=== PATIENT | female | born 1960 | race Caucasian/White ===

== ENCOUNTER 2017-11-02 21:14 | Emergency (ER) | payer BC, OTHER | END 2017-11-03 00:10 | disposition home or self-care (01) | LOC: M ED 11-03 00:10 | DX: S90.32XA Contusion of left foot, initial encounter (principal); W20.8XXA Other cause of strike by thrown, projected or falling object, initial encounter; Y92.099 Unspecified place in other non-institutional residence as the place of occurrence of the external cause; Y93.9 Activity, unspecified; Y99.9 Unspecified external cause status; I10 Essential (primary) hypertension; J45.909 Unspecified asthma, uncomplicated; Z87.442 Personal history of urinary calculi; E11.9 Type 2 diabetes mellitus without complications; Z87.891 Personal history of nicotine dependence; Z79.82 Long term (current) use of aspirin; Z79.899 Other long term (current) drug therapy; Z88.5 Allergy status to narcotic agent; Z88.8 Allergy status to other drugs, medicaments and biological substances | CPT/HCPCS: 73630 ==

== ENCOUNTER → 2017-11-11 | Outpatient (CLI) | payer BC, OTHER | LOC: M WUC 17:51 | DX: S60.042A Contusion of left ring finger without damage to nail, initial encounter (principal); X58.XXXA Exposure to other specified factors, initial encounter; Y92.89 Other specified places as the place of occurrence of the external cause | CPT/HCPCS: 73140 ==

== ENCOUNTER → 2018-04-17 | Outpatient (CLI) | payer BC, OTHER ==
[~2018-04-17] MED LIST: CETI5TA PO; DITR5TAB PO; ECOT81TA5 PO; METF10004 PO
--- NOTE | 2018-04-17 16:24 | REP ---
Clinical: Pain extending to the right gluteal region. Technique: Frontal view of the pelvis with neutral and frog lateral views of the right hip. Findings: Generalized age-related degenerative changes are appreciated. The bilateral hip joints appear symmetric on frontal pelvic radiograph. No acute fracture or dislocation. No overt osteoarthritic degenerative findings identified. Impression: Age-related degenerative changes noted. Electronically Signed by Brandt Morley MD 04/17/2018 04:16 P
== END ==
LOC: M WUC 15:27
PROVIDERS: ATTEND Physician Assistant
DX: M16.11 Unilateral primary osteoarthritis, right hip (principal); M25.551 Pain in right hip

== ENCOUNTER → 2018-06-24 | Outpatient (CLI) | payer BC, OTHER ==
--- NOTE | 2018-06-26 15:21 | DEXA ---
AP SPINE L1 - L4 1.241 0.4 1.6 LT FEMUR TOTAL 1.057 0.4 1.3 LT NECK 0.956 -0.6 0.6 RT FEMUR TOTAL 1.102 0.7 1.7 RT NECK 0.999 -0.3 1.0 TOTAL BODY TOTAL OTHER COMMENTS: Normal bone densitometry of the spine and hips. FOLLOW-UP: Recommendation for the next bone density exam: 5 years. COLEEN
== END ==
LOC: M WHC 11:57
PROVIDERS: ATTEND Family Medicine
DX: M25.551 Pain in right hip (principal)

== ENCOUNTER 2018-11-09 09:19 | Day surgery (SDC) | payer BC, OTHER ==
[~2018-11-09] VITALS: Ht 157.5 cm; Wt 77.6 kg
[~2018-11-09 09:19] MED LIST changes: +CHLO50TA PO; +COEN100T PO; +CRES10TA PO; +CYAN500T8 PO; +EVEN500C3 PO; +FLON1SPR; +JANU100T PO; +MELO15TA28 PO; +MONT10TA2 PO; +MSM500CA4 PO; +MULTCAP PO; +NS 1,000 ML IV ONE; +PANT20TA2 PO; +POTA10TA16 PO; +VENTAER INH
[2018-11-09] MEDS ORDERED: LIDOCAINE 2% INJ 100 MG/5 ML SDV (FOR ANES.) As Ordered ONE (12:11)
[2018-11-09] MEDS ORDERED: propofoL 200 MG/20 ML VIAL As Ordered ONE ×2 (12:11→12:29)
--- NOTE | 2018-11-09 12:45 | ROOR ---
Patient Name: Catrachita Madrid Procedure Date: 11/09/2018 12:26 PM Date of : 1960 Age: 58 Room: [facility] Gender: Female Note Status: Finalized Procedure: Upper Endoscopy + Biopsies Indications: Heartburn, Exclusion of Azevedo's esophagus Providers: Vic Ann MD Referring MD: GRISEL RECINOS MD Requesting Provider: Medicines: Monitored Anesthesia Care Complications: No immediate complications. Procedure: Pre-Anesthesia Assessment: - The heart rate, respiratory rate, oxygen saturations, blood pressure, adequacy of pulmonary ventilation, and response to care were monitored throughout the procedure. The Endoscope was introduced through the mouth, and advanced to the second part of duodenum. The upper GI endoscopy was accomplished without difficulty. The patient tolerated the procedure well. Findings: The Z-line was variable and was found 38 cm from the incisors. Multiple biopsies were obtained with cold forceps for evaluation to rule out Azevedo's Esophagus randomly at the gastroesophageal junction. A small hiatal hernia was present. No other significant abnormalities were identified in a careful examination of the stomach. The exam of the duodenum was otherwise normal. Impression: - Z-line variable, 38 cm from the incisors. - Small hiatal hernia. - Multiple biopsies were obtained at the gastroesophageal junction. - The examination was otherwise normal. Recommendation: - Patient has a contact number available for emergencies. The signs and symptoms of potential delayed complications were discussed with the patient. Return to normal activities tomorrow. Written discharge instructions were provided to the patient. - High fiber diet. - Discharge patient to home. - Follow an antireflux regimen. - Continue present medications. - Await pathology results. - Telephone GI clinic for pathology results in 1 week. - Return to referring physician. - Check Portal Online for Path Results.([email or web address]) - The findings and recommendations were discussed with the patient's family. Vic Ann MD Vic Ann MD 11/09/2018 12:45:01 PM Electronically signed by Vic Ann MD Number of Addenda: 0 Note Initiated On: 11/09/2018 12:26 PM Estimated Blood Loss: Estimated blood loss: none.
--- NOTE | 2018-11-09 13:15 | ROOR ---
Patient Name: Catrachita Madrid Procedure Date: 11/09/2018 12:27 PM Date of : 1960 Age: 58 Room: [facility] Gender: Female Note Status: Finalized Procedure: Total Colonoscopy to Cecum Indications: Screening for colorectal malignant neoplasm Providers: Vic Ann MD Referring MD: GRISEL RECINOS MD Requesting Provider: Medicines: Monitored Anesthesia Care Complications: No immediate complications. Procedure: Pre-Anesthesia Assessment: - The heart rate, respiratory rate, oxygen saturations, blood pressure, adequacy of pulmonary ventilation, and response to care were monitored throughout the procedure. The Colonoscope was introduced through the anus and advanced to the cecum, identified by appendiceal orifice and ileocecal valve. The colonoscopy was performed without difficulty. The patient tolerated the procedure well. The quality of the bowel preparation was excellent. Findings: The perianal and digital rectal examinations were normal. Non-bleeding internal hemorrhoids were found during retroflexion. The hemorrhoids were small and Grade I (internal hemorrhoids that do not prolapse). Multiple small and large-mouthed diverticula were found in the recto-sigmoid colon, sigmoid colon and descending colon. The exam was otherwise without abnormality on direct and retroflexion views. Impression: - Non-bleeding internal hemorrhoids. - Diverticulosis in the recto-sigmoid colon, in the sigmoid colon and in the descending colon. - The examination was otherwise normal on direct and retroflexion views. - No specimens collected. - The exam was otherwise normal to the cecum. Recommendation: - Patient has a contact number available for emergencies. The signs and symptoms of potential delayed complications were discussed with the patient. Return to normal activities tomorrow. Written discharge instructions were provided to the patient. - High fiber diet. - Discharge patient to home. - Continue present medications. - Repeat colonoscopy in 10 years for screening purposes. - Return to referring physician. - The findings and recommendations were discussed with the patient's family. Vic Ann MD Vic Ann MD 11/09/2018 1:15:23 PM Electronically signed by Vic Ann MD Number of Addenda: 0 Note Initiated On: 11/09/2018 12:27 PM Estimated Blood Loss: Estimated blood loss: none.
[2018-11-09 13:46] VITALS: BP 143/80
== END 2018-11-09 13:57 | disposition home or self-care (01) ==
LOC: M OPP 09:19
PROVIDERS: ATTEND Internal Medicine Gastroenterology
DX: K64.0 First degree hemorrhoids (principal); K57.30 Diverticulosis of large intestine without perforation or abscess without bleeding; Z12.11 Encounter for screening for malignant neoplasm of colon; K22.8 Other specified diseases of esophagus; K44.9 Diaphragmatic hernia without obstruction or gangrene; R12 Heartburn; Z79.82 Long term (current) use of aspirin; Z79.84 Long term (current) use of oral hypoglycemic drugs; Z79.899 Other long term (current) drug therapy; Z88.5 Allergy status to narcotic agent; Z88.8 Allergy status to other drugs, medicaments and biological substances

== ENCOUNTER 2019-06-30 08:20 | Day surgery (SDC) | payer BC, OTHER ==
[~2019-06-30] VITALS: Ht 157.5 cm; Wt 78.5 kg
[~2019-06-30 08:20] MED LIST changes: +LR 1,000 ML IV ONE; -MONT10TA2 PO; +MONT10TA4 PO; -NS 1,000 ML IV ONE; +ceFAZolin SOD 2 GM in IV 1 EA IV ONE
[2019-06-30] MEDS ORDERED: LIDOCAINE 1% MDV 20ML VIAL As Ordered ONE (08:37)
[2019-06-30] MEDS ORDERED: BUPIVACAINE HCL 0.5% 10 ML VIAL As Ordered ONE (08:38)
[2019-06-30] MEDS ORDERED: dexameTHASONE 4 MG/ML 1ML VIAL (J1100) As Ordered ONE ×3 (08:38→11:53)
[2019-06-30] MEDS ORDERED: LIDOCAINE 2% INJ 100 MG/5 ML SYRINGE As Ordered ONE (10:13)
[2019-06-30] MEDS ORDERED: fentaNYL 100 MCG/2 ML INJECTION (J3010) As Ordered ONE (10:13)
[2019-06-30] MEDS ORDERED: propofoL 200 MG/20 ML VIAL As Ordered ONE ×2 (10:13→12:01)
[2019-06-30] MEDS ORDERED: MIDAZOLAM INJ 2 MG/2 ML VIAL (J2250) As Ordered ONE (10:14)
[2019-06-30] MEDS ORDERED: ONDANSETRON 4MG/2ML VIAL (J2405) As Ordered ONE (10:19)
[2019-06-30] MEDS ORDERED: KETOROLAC 60 MG/2 ML VIAL (J1885) As Ordered ONE (10:19)
[2019-06-30] MEDS ORDERED: METOCLOPRAMIDE INJ 10MG/2ML VIAL (J2765) As Ordered ONE (11:43)
[2019-06-30] MEDS ORDERED: HYDR-3713 PO (12:28)
[2019-06-30 13:43] VITALS: BP 152/86
--- NOTE | 2019-07-01 22:27 | RO ---
DATE OF PROCEDURE: 06/30/2019 PREPROCEDURE DIAGNOSIS: Left foot bunion. POSTPROCEDURE DIAGNOSIS: Left foot bunion. PROCEDURE: Left foot bunionectomy with 1st metatarsal osteotomy. SURGEON: Sim Felix DPM STENOGRAPHER SECRETARY: None. ANESTHESIA: Monitored anesthesia care with preoperative injection of 15 mL of a 1:1 mixture of 1% lidocaine plain and 0.50% Marcaine plain. ESTIMATED BLOOD LOSS: Minimal. MATERIALS: Arthrex 2.5 headless compression screw, #3-0 and #4-0 Vicryl, #4-0 nylon. INJECTABLES: 1 mL of Decadron, 4 mg per mL. COMPLICATIONS: None. CONDITION: Stable. Catrachita Madrid is a 59-year-old female who presents to [facility] with complaints of painful bunion to her left foot. She presents today for surgical correction. The patient's side and site were identified and marked in the preoperative holding area. Consent was reviewed and obtained. All risks, complications, and alternatives to the procedure were explained to the patient in detail and all questions were answered. DESCRIPTION OF PROCEDURE: The patient was brought to the operating room and placed on the operating room table in supine position, monitored anesthesia care was delivered by the anesthesia team. Preoperative injection of 15 mL of a 1:1 mixture of 1% lidocaine plain and 0.50% Marcaine plain were injected into the left foot. The left foot was prepped and draped in the normal sterile fashion. A tourniquet was applied to the left ankle and inflated at 225 mmHg. A dorsal incision was drawn over the 1st metatarsophalangeal joint and carried through with a #15 blade. Dissection was carried down to the 1st metatarsophalangeal joint capsule. T-capsulotomy was performed exposing the metatarsal head. Following this, a lateral release was performed releasing the lateral capsule, adductor tendon, sesamoidal ligaments and McGlamry elevator was used to release the plantar structures. Following this, the medial eminence of the metatarsal head was resected with a sagittal saw, and an osteotomy was performed of the metatarsal head, transposing it laterally. This was fixated with an Arthrex 2.5 headless compression screw. Remaining bone ledge was removed with a sagittal saw and smoothed with a rasp. Site was irrigated with normal. A wedge of capsule was removed from the medial capsule and capsular repair was performed with #3-0 Vicryl, subcutaneous closure with #4-0 Vicryl, and skin closure with #4-0 nylon. 1 mL of Decadron was injected. Sterile dressings were applied, tourniquet was deflated. The patient was brought to the post-anesthesia care unit (PACU) with vital signs stable, neurovascular status intact. She will be partial weightbearing. She will followup in the office in 2 days.
== END 2019-06-30 14:10 | disposition home or self-care (01) ==
LOC: M SDC 08:20
PROVIDERS: ATTEND Podiatrist Foot & Ankle Surgery
DX: M20.12 Hallux valgus (acquired), left foot (principal); E11.9 Type 2 diabetes mellitus without complications; I10 Essential (primary) hypertension; E78.5 Hyperlipidemia, unspecified; K21.9 Gastro-esophageal reflux disease without esophagitis; M79.7 Fibromyalgia; Z87.891 Personal history of nicotine dependence; Z79.899 Other long term (current) drug therapy; Z79.84 Long term (current) use of oral hypoglycemic drugs
CPT/HCPCS: 28296; 88300; C1713; J0690; J1100; J1885; J2250; J2405; J2765; J3010

== ENCOUNTER → 2020-04-04 | Outpatient (CLI) | payer BC, OTHER ==
[~2020-04-04] MED LIST changes: +CYAN500T14 PO; -CYAN500T8 PO; +HYDR-3713 PO; -LR 1,000 ML IV ONE; +METHACHOLINE KIT (J7674) INH ONE; -MONT10TA4 PO; +MONT5TAB2 PO; -PANT20TA2 PO; +PANT20TA6 PO; -ceFAZolin SOD 2 GM in IV 1 EA IV ONE
--- NOTE | 2020-04-04 10:13 | PFTRPT ---
Height: 62.00 Inches Weight: 167.00 Lbs BSA: 1.77 Diagnosis: R06.02 DATE: 04/04/2020 ORDERED BY: Heydi Fuller NP. QUALITY: Study of excellent technical quality. PROCEDURE: Under protocol, methacholine was administered. Even after a maximal dose of 25 mg or 188.875 CDUs, no provocation dose ever achieved. IMPRESSION: Negative methacholine challenge study. MTDD
== END ==
LOC: M CARPUL 09:22
PROVIDERS: ATTEND Nurse Practitioner Adult Health
DX: R06.02 Shortness of breath (principal)
CPT/HCPCS: 94070; J7674

== ENCOUNTER → 2021-01-29 | Outpatient (REF) | payer BC, OTHER ==
[~2021-01-29] MED LIST changes: -METHACHOLINE KIT (J7674) INH ONE; +MONT10TA10 PO; -MONT5TAB2 PO
== END ==
LOC: M WUC 15:42
PROVIDERS: ATTEND Physician Assistant
DX: N39.0 Urinary tract infection, site not specified (principal)

== ENCOUNTER 2021-01-30 11:48 | Emergency (ER) | payer BC, OTHER ==
[~2021-01-30] VITALS: Ht 157.5 cm; Wt 74.4 kg
[2021-01-30] MEDS ORDERED: NS 1,000 ML IV ONE (15:15)
[2021-01-30] MEDS ORDERED: ACETAMINOPHEN 500 MG TAB PO ONE ×2 (15:15→16:45)
[2021-01-30 16:00] LABS: BASO % 0.2 % (0.0-1.0); EOS % 0.1 % (0.0-3.0); HEMATOCRIT 36.8 % (36.0-47.0); LYMPH # 1.2 10^3/uL (1.5-5.0); LYMPH % 12.2 % (24.0-44.0); MEAN CORPUSCULAR HGB CONC 32.6 g/dl (32.0-36.5); MEAN CORPUSCULAR VOLUME 85.8 fl (80.0-96.0); NEUTROPHILS # 7.8 10^3/uL (1.5-8.5); PLATELET COUNT, AUTOMATED 231 10^3/uL (150-450); RED BLOOD COUNT 4.29 10^6/uL (4.00-5.40); WHITE BLOOD COUNT 10.1 10^3/uL (4.0-10.0)
--- NOTE | 2021-01-30 16:06 | REP ---
INDICATION: R flank pain, treated for UTI, h/o kidney stones COMPARISON: 08/03/2009 TECHNIQUE: Axial noncontrast images from the lung bases to the pubic symphysis with coronal and sagittal reformations. This CT examination was performed using the following dose reduction techniques: Automated exposure control, adjustment of mA and/or kv according to the patient's size, and use of iterative reconstruction technique. FINDINGS: Acute right-sided perinephric and periureteral stranding is appreciated with multiple nonobstructing intrarenal calculi measuring up to 3.5 mm and no significant hydroureter or obvious obstructing ureteral calculus. However, evaluation of the ureter is somewhat limited due to adjacent soft tissue structures and multiple phleboliths through the lower abdomen and pelvis. Left kidney also demonstrates multiple nonobstructing intrarenal calculi up to 2.5 mm without hydroureteronephrosis. Liver, spleen, pancreas, gallbladder, and bilateral adrenal glands are essentially normal for noncontrast evaluation. The enteric system is without obstruction or acute inflammatory process. Diverticulosis noted without acute diverticulitis. Normal terminal ileum and appendix identified in the right lower quadrant. Pelvis demonstrates relatively normal uterus and right adnexa along with 4.6 cm chronic left ovarian cyst. Small fat containing inguinal hernias noted. No ascites. No free air. No significant adenopathy. Atherosclerotic changes to the aorta and vasculature noted without aneurysm. Musculoskeletal structures demonstrate degenerative changes without acute osseous abnormality. Lung bases are clear. IMPRESSION: Bilateral nonobstructing nephroliths. Changes related to the right kidney suggest acute pyelonephritis versus recently passed ureteral stone. Correlation is required. 4.6 cm chronic left ovarian cyst. Diverticulosis. <Electronically signed by Brandt Morley > 01/30/21 [id number]
[2021-01-30 16:24] LABS: ALBUMIN 3.3 GM/DL (3.2-5.2); ALT/SGPT 28 U/L (12-78); BILIRUBIN,DIRECT 0.1 MG/DL (0.0-0.2); BILIRUBIN,TOTAL 0.4 MG/DL (0.2-1.0); BLOOD UREA NITROGEN 11 MG/DL (7-18); CALCIUM LEVEL 9.5 MG/DL (8.8-10.2); CARBON DIOXIDE LEVEL 34 MEQ/L (21-32); CHLORIDE LEVEL 99 MEQ/L (98-107); CREATININE FOR GFR 0.72 MG/DL (0.55-1.30); GLOMERULAR FILTRATION RATE > 60.0 (>45); GLUCOSE, FASTING 129 MG/DL (70-100); LIPASE 57 U/L (73-393); POTASSIUM SERUM 3.3 MEQ/L (3.5-5.1); SODIUM LEVEL 138 MEQ/L (136-145); TOTAL PROTEIN 7.2 GM/DL (6.4-8.2)
[2021-01-30] MEDS ORDERED: cefTRIAXone SOD 1 GM in D5W MINI-BAG PLUS 50 ML IV ONE (16:30)
[2021-01-30 16:45] LABS: RSV AMPLIFICATION NEGATIVE (NEGATIVE)
[2021-01-30] MEDS ORDERED: CIPROFLOXACIN 500MG TABLET PO ONE (17:10)
[2021-01-30] MEDS ORDERED: NS 500 ML IV ONE (17:15)
[2021-01-30 19:13] VITALS: BP 130/69
== END 2021-01-30 19:54 | disposition home or self-care (01) ==
LOC: M ED 11:48
DX: N10 Acute pyelonephritis (principal); R50.9 Fever, unspecified; E66.9 Obesity, unspecified; E11.9 Type 2 diabetes mellitus without complications; I10 Essential (primary) hypertension; E78.5 Hyperlipidemia, unspecified; G47.33 Obstructive sleep apnea (adult) (pediatric); K57.92 Diverticulitis of intestine, part unspecified, without perforation or abscess without bleeding; Z87.448 Personal history of other diseases of urinary system; N83.292 Other ovarian cyst, left side; Z79.82 Long term (current) use of aspirin; Z79.899 Other long term (current) drug therapy; Z88.5 Allergy status to narcotic agent; Z88.8 Allergy status to other drugs, medicaments and biological substances

== ENCOUNTER → 2021-03-14 | Outpatient (CLI) | payer BC, OTHER ==
--- NOTE | 2021-03-15 08:28 | ECGEPIP ---
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 Clincal correlation advised Electronically Signed on 03-15-2021 8:27:44 EST by Jadon Rubio
== END ==
LOC: M EKG 12:31 → M CARPUL 12:31
PROVIDERS: ATTEND Anesthesiology
DX: Z01.810 Encounter for preprocedural cardiovascular examination (principal)

== ENCOUNTER 2021-03-20 06:07 | Day surgery (SDC) | payer BC, OTHER ==
[~2021-03-20] VITALS: Ht 157.5 cm; Wt 75.2 kg
[~2021-03-20 06:07] MED LIST changes: +ACETAMINOPHEN *IV* 1,000 MG IV ONE; +LIDOCAINE 1% MDV 20ML VIAL SQ PRN; +LR 1,000 ML IV ONE; -MONT10TA10 PO; +MONT10TA97 PO; +POTA-149 PO; -POTA10TA16 PO
[2021-03-20] MEDS ORDERED: SILVER NITRATE APPLICATOR As Ordered ONE (07:11)
[2021-03-20] MEDS ORDERED: fentaNYL 100 MCG/2 ML INJECTION As Ordered ONE (07:19)
[2021-03-20] MEDS ORDERED: MIDAZOLAM INJ 2MG/2ML VIAL (J2250 PER 1MG) As Ordered ONE (07:19)
[2021-03-20] MEDS ORDERED: propofoL 200 MG/20 ML VIAL As Ordered ONE (07:19)
[2021-03-20] MEDS ORDERED: LIDOCAINE 2% 100MG/5ML SDV (FOR ANES.) As Ordered ONE (07:19)
[2021-03-20 07:22] LABS: HEMATOCRIT 34.9 % (36.0-47.0); HEMOGLOBIN 11.5 g/dl (12.0-15.5)
[2021-03-20] MEDS ORDERED: SCOPOLAMINE 1MG TRANSDERMAL PATCH TOP ONE (07:25)
[2021-03-20] MEDS ORDERED: dexameTHASONE 4 MG/ML 1ML VIAL (J1100 PER 1MG) As Ordered ONE (07:40)
[2021-03-20] MEDS ORDERED: ONDANSETRON 4MG/2ML VIAL As Ordered ONE (07:40)
[2021-03-20] MEDS ORDERED: ACETAMINOPHEN 1000MG 100ML IV BTL (OFIRMEV) (J0131 PER 10MG) As Ordered ONE (07:42)
[2021-03-20] MEDS ORDERED: KETOROLAC 60MG 2ML VIAL As Ordered ONE (07:42)
[2021-03-20] MEDS ORDERED: METOCLOPRAMIDE INJ 10MG/2ML VIAL (J2765 PER 1) As Ordered ONE (07:44)
[2021-03-20 07:56] LABS: ALBUMIN 3.5 GM/DL (3.2-5.2); ALT/SGPT 28 U/L (12-78); BILIRUBIN,TOTAL 0.3 MG/DL (0.2-1.0); BLOOD UREA NITROGEN 12 MG/DL (7-18); CALCIUM LEVEL 9.3 MG/DL (8.8-10.2); CARBON DIOXIDE LEVEL 30 MEQ/L (21-32); CHLORIDE LEVEL 105 MEQ/L (98-107); CREATININE FOR GFR 0.69 MG/DL (0.55-1.30); GLOMERULAR FILTRATION RATE > 60.0 (>45); GLUCOSE, FASTING 119 MG/DL (70-100); POTASSIUM SERUM 3.1 MEQ/L (3.5-5.1); SODIUM LEVEL 141 MEQ/L (136-145); TOTAL PROTEIN 7.3 GM/DL (6.4-8.2)
[2021-03-20] MEDS ORDERED: METOCLOPRAMIDE INJ 10MG/2ML VIAL (J2765 PER 1) IV PRN (09:05)
[2021-03-20] MEDS ORDERED: PERCOCET 5MG/325MG TAB PO PRN (09:05)
[2021-03-20] MEDS ORDERED: ONDANSETRON 4MG/2ML VIAL IV PRN (09:05)
[2021-03-20] MEDS ORDERED: LR 1,000 ML IV SCH (09:05)
[2021-03-20] MEDS ORDERED: fentaNYL 100 MCG/2 ML INJECTION IV PRN (09:05)
[2021-03-20 10:13] VITALS: BP 155/84
[2021-03-20] MEDS ORDERED: KETOROLAC 30 MG/ML 1ML VIAL IV ONE (14:00)
== END 2021-03-20 10:16 | disposition home or self-care (01) ==
LOC: M SDC 06:07
PROVIDERS: ATTEND Obstetrics & Gynecology
DX: N95.0 Postmenopausal bleeding (principal); I10 Essential (primary) hypertension; E78.5 Hyperlipidemia, unspecified; E11.9 Type 2 diabetes mellitus without complications; G47.33 Obstructive sleep apnea (adult) (pediatric); Z79.84 Long term (current) use of oral hypoglycemic drugs; Z88.8 Allergy status to other drugs, medicaments and biological substances; Z88.5 Allergy status to narcotic agent; Z79.899 Other long term (current) drug therapy; M79.7 Fibromyalgia; K21.9 Gastro-esophageal reflux disease without esophagitis
CPT/HCPCS: 36415; 58558; 80053; 85014; 85018; 86850; 86900; 86901; 88305; J0131; J1100; J1885; J2250; J2405; J2765; J3010

== ENCOUNTER → 2021-04-12 | Outpatient (CLI) | payer BC, OTHER ==
[~2021-04-12] MED LIST changes: -ACETAMINOPHEN *IV* 1,000 MG IV ONE; -LIDOCAINE 1% MDV 20ML VIAL SQ PRN; -LR 1,000 ML IV ONE
== END ==
LOC: M WHC 07:03
PROVIDERS: ATTEND Family Medicine
DX: Z12.31 Encounter for screening mammogram for malignant neoplasm of breast (principal); Z80.3 Family history of malignant neoplasm of breast; R92.1 Mammographic calcification found on diagnostic imaging of breast

== ENCOUNTER → 2022-04-15 | Outpatient (CLI) | payer BC, OTHER | LOC: M WHC 13:14 | PROVIDERS: ATTEND Family Medicine | DX: Z12.31 Encounter for screening mammogram for malignant neoplasm of breast (principal) ==

== ENCOUNTER → 2022-09-03 | Outpatient (CLI) | payer BC, OTHER | LOC: M WHC 08:22 | PROVIDERS: ATTEND Family Medicine | DX: M85.80 Other specified disorders of bone density and structure, unspecified site (principal) ==

== ENCOUNTER → 2022-12-10 | Outpatient (CLI) | payer BC, OTHER | LOC: M WHC 06:46 | PROVIDERS: ATTEND Family Medicine | DX: D12.9 Benign neoplasm of anus and anal canal (principal) ==

== ENCOUNTER → 2023-03-07 | Outpatient (CLI) | payer BC, OTHER | LOC: M WHC 14:28 | PROVIDERS: ATTEND Specialist | DX: N83.202 Unspecified ovarian cyst, left side (principal); D25.9 Leiomyoma of uterus, unspecified; R14.0 Abdominal distension (gaseous); N94.89 Other specified conditions associated with female genital organs and menstrual cycle ==

== ENCOUNTER → 2023-05-27 | Outpatient (CLI) | payer MEDICARE, OTHER | LOC: M WHC 07:35 | PROVIDERS: ATTEND Family Medicine | DX: Z12.31 Encounter for screening mammogram for malignant neoplasm of breast (principal); R92.323 Mammographic fibroglandular density, bilateral breasts ==

== ENCOUNTER → 2023-09-06 | Outpatient (CLI) | payer MEDICARE, OTHER ==
[~2023-09-06] MED LIST changes: -EVEN500C3 PO; +EVEN500C7 PO
== END ==
LOC: M RAD 11:59
PROVIDERS: ATTEND Nurse Practitioner Family
DX: M25.521 Pain in right elbow (principal); S50.01XA Contusion of right elbow, initial encounter; Y93.9 Activity, unspecified; Y92.9 Unspecified place or not applicable

== ENCOUNTER 2024-04-05 07:35 | Emergency (ER) | payer MEDICARE, OTHER ==
[~2024-04-05] VITALS: Ht 157.5 cm; Wt 70.8 kg
[2024-04-05] MEDS: ONDANSETRON 4MG 2ML VIAL IV ONE (10:14)
[2024-04-05] MEDS: fentaNYL 100 MCG/2 ML INJECTION IV ONE (10:14)
[2024-04-05] MEDS: KETOROLAC 30 MG/ML 1ML VIAL IV ONE (11:51)
[2024-04-05] MEDS: methocarbamoL 500 MG TAB PO ONE (11:51)
[2024-04-05 12:03] VITALS: BP 120/72; TEMP 98.4; O2SAT 97
== END 2024-04-05 12:55 | disposition home or self-care (01) ==
LOC: M ED 07:35
DX: S42.211A Unspecified displaced fracture of surgical neck of right humerus, initial encounter for closed fracture (principal); W00.0XXA Fall on same level due to ice and snow, initial encounter; Y92.89 Other specified places as the place of occurrence of the external cause; Y93.9 Activity, unspecified; Y99.9 Unspecified external cause status; E11.9 Type 2 diabetes mellitus without complications; I10 Essential (primary) hypertension; G47.33 Obstructive sleep apnea (adult) (pediatric); K57.92 Diverticulitis of intestine, part unspecified, without perforation or abscess without bleeding; K21.9 Gastro-esophageal reflux disease without esophagitis; Z79.82 Long term (current) use of aspirin; Z79.899 Other long term (current) drug therapy; Z88.5 Allergy status to narcotic agent; Z88.8 Allergy status to other drugs, medicaments and biological substances
CPT/HCPCS: 73030; 73060; 73080; 96374; 96375; 99284; J1885; J2405; J3010

== ENCOUNTER → 2024-04-12 | Outpatient (CLI) | payer MEDICARE, OTHER | LOC: M SOG 08:01 | PROVIDERS: ATTEND Orthopaedic Surgery | DX: S42.211A Unspecified displaced fracture of surgical neck of right humerus, initial encounter for closed fracture (principal); W18.30XA Fall on same level, unspecified, initial encounter; Y92.009 Unspecified place in unspecified non-institutional (private) residence as the place of occurrence of the external cause ==

== ENCOUNTER → 2024-05-25 | Outpatient (CLI) | payer MEDICARE, OTHER | LOC: M RAD 12:25 | PROVIDERS: ATTEND Physician Assistant | DX: M79.605 Pain in left leg (principal); M16.12 Unilateral primary osteoarthritis, left hip ==

== ENCOUNTER → 2024-07-01 | Outpatient (CLI) | payer MEDICARE, OTHER | LOC: M WHC 13:46 | PROVIDERS: ATTEND Physician Assistant | DX: Z12.31 Encounter for screening mammogram for malignant neoplasm of breast (principal); R92.313 Mammographic fatty tissue density, bilateral breasts; R92.8 Other abnormal and inconclusive findings on diagnostic imaging of breast ==

== ENCOUNTER → 2024-09-15 | Outpatient (CLI) | payer MEDICARE, OTHER | LOC: M WHC 07:24 | PROVIDERS: ATTEND Physician Assistant | DX: M81.0 Age-related osteoporosis without current pathological fracture (principal) ==

== ENCOUNTER → 2025-02-22 | Outpatient (CLI) | payer MEDICARE, OTHER ==
[2025-02-22 12:37] LABS: BASO # 0.1 10^3/uL (0.0-0.2); BASO % 1.0 % (0.0-1.0); EOS # 0.1 10^3/uL (0.0-0.5); EOS % 1.7 % (0.0-3.0); LYMPH # 2.3 10^3/uL (1.5-5.0); LYMPH % 32.4 % (24.0-44.0); MONO # 0.5 10^3/uL (0.0-0.8); MONO % 6.6 % (2.0-8.0); NEUTROPHILS # 4.1 10^3/uL (1.5-8.5); NEUTROPHILS % 57.2 % (36.0-66.0); PLATELET COUNT, AUTOMATED 303 10^3/uL (150-450)
[2025-02-22 12:42] LABS: IRON (FE) 62 UG/DL (50-170); PERCENT SATURATION 21.2 % (13.2-45.0)
[2025-02-22 12:43] LABS: ALT/SGPT 14 U/L (7.0-40); AST/SGOT 18 U/L (<34); CALCIUM LEVEL 10.6 MG/DL (8.3-10.6); CARBON DIOXIDE LEVEL 31 MMOL/L (20-31); CHLORIDE LEVEL 103 MMOL/L (98-107); CHOLESTEROL LEVEL 121 MG/DL (<200); CHOLESTEROL RISK RATIO 2.16 (<5); CREATININE FOR GFR 0.51 MG/DL (0.55-1.30); GLOMERULAR FILTRATION RATE > 90.0 (>45); LDL CHOLESTEROL 50.0 MG/DL (<100); MAGNESIUM LEVEL 1.5 MG/DL (1.8-2.4); NON-HDL-C 65.2 MG/DL; POTASSIUM SERUM 4.5 MMOL/L (3.5-5.1); SODIUM LEVEL 145 MMOL/L (136-145); TRIGLYCERIDES LEVEL 76 MG/DL (<150)
[2025-02-22 12:45] LABS: VITAMIN B12 LEVEL 816 PG/ML (211-911)
[2025-02-22 13:09] LABS: ESTIMATED AVERAGE GLUCOSE 148.0 MG/DL (60-110)
== END ==
LOC: M WUC 09:05
PROVIDERS: ATTEND Physician Assistant
DX: E11.9 Type 2 diabetes mellitus without complications (principal); R25.1 Tremor, unspecified